=== PATIENT | female | born 1995 | race Caucasian/White ===

== ENCOUNTER 2016-12-07 11:11 | Day surgery (SDC) | payer OTHER ==
[~2016-12-07] VITALS: Ht 167.6 cm; Wt 76.1 kg
[2016-12-07 12:33] VITALS: Ht 167.6 cm; Wt 76.1 kg
[2016-12-07] MEDS ORDERED: CITA10TA72 PO (12:41)
[2016-12-07] MEDS ORDERED: ARIP15TA2 PO (12:41)
[2016-12-07] MEDS ORDERED: OMEP40CA6 PO (12:41)
[2016-12-07 13:15] VITALS: BP 109/71; PULSE 68; RESP 12
[2016-12-07] MEDS ORDERED: PROPOFOL 20 ML ONE (13:43)
[2016-12-07 14:29] VITALS: BP 117/75; PULSE 68; RESP 12
--- NOTE | 2016-12-15 05:22 | GILP ---
DATE OF PROCEDURE: 12/07/2016 PROCEDURE PERFORMED: Esophagogastroduodenoscopy and biopsy. PREOPERATIVE DIAGNOSIS: Abdominal pain. SURGEON: Kobe St MD. POSTOPERATIVE DIAGNOSES: 1. Gastritis. 2. Gastric mucosal biopsies were taken for Helicobacter pylori test. INDICATION FOR PROCEDURE: Ms. Clementina Suarez is a 21-year-old female patient who had lower and upper abdominal pain not responding to therapy. The patient was scheduled for endoscopy examination for further evaluation. The procedure and possible complications were well explained to the patient. The patient understood and consented to the procedure. DESCRIPTION OF PROCEDURE: Under the influence of anesthesia the gastroscope was carefully introduced into the esophagus and under direct vision it was advanced to the stomach, into the pylorus, into the duodenal bulb and descending duodenum. Findings, the esophagus mucosa was normal. Stomach, the patient had gastritis. Gastric mucosal biopsies were taken for Helicobacter pylori test. The duodenum was normal. She tolerated the procedure very well and there was no complication from the procedure. At the end of procedure she was awake with stable vital signs and she was discharged home in the care of her family. IMPRESSION: 1. Gastritis. 2. Gastric mucosal biopsies were taken for Helicobacter pylori test. PLAN: 1. Continue omeprazole. 2. Await Helicobacter pylori test report. 3. Bentyl 10 mg p.o. t.i.d. p.r.n. for pain. Dictated By: MD LEANDRA Bazan/froilan/tiffanie /Document#: [id number] CC: Kobe St MD;*[facility]*
== END 2016-12-07 17:20 | disposition home or self-care (01) ==
LOC: GIL 11:11
PROVIDERS: ATTEND Internal Medicine Gastroenterology
DX: K29.70 Gastritis, unspecified, without bleeding (principal); E11.9 Type 2 diabetes mellitus without complications
CPT/HCPCS: 43239; 84703; 87081; Z7610